=== PATIENT | female | born 1965 | race Caucasian/White ===

== ENCOUNTER → 2017-10-21 | Outpatient (CLI) | payer OTHER ==
[2017-10-21 11:04] LABS: Basophils % (A) 1 %; Eosinophils # (A) 0.1 k/uL (0-0.7); Eosinophils % (A) 2 %; HCT 45.1 % (34.0-46.0); HGB 14.9 gm/dL (11.4-16.0); Lymphocytes # (A) 1.7 k/uL (1.0-4.8); Lymphocytes % (A) 32 %; MCH 30.8 pg (25.0-35.0); MCHC 33.1 g/dL (31.0-37.0); MCV 93.3 fL (80.0-100.0); Mean Platelet Volume 6.9; Monocytes # (A) 0.4 k/uL (0-1.0); Monocytes % (A) 7 %; Neutrophils % (A) 57 %; Platelet Count 294 k/uL (150-450); RBC 4.83 m/uL (3.80-5.40); RDW 13.7 % (11.5-15.5); WBC 5.4 k/uL (3.8-10.6)
[2017-10-21 11:24] LABS: ALT 20 U/L (9-52); AST 17 U/L (14-36); Albumin 4.2 g/dL (3.5-5.0); Alkaline Phosphatase 33 U/L (38-126); Anion Gap 9 mmol/L; Blood Urea Nitrogen 16 mg/dL (7-17); Calcium 9.6 mg/dL (8.4-10.2); Carbon Dioxide 27 mmol/L (22-30); Chloride 105 mmol/L (98-107); Glucose 85 mg/dL (74-99); Potassium 4.6 mmol/L (3.5-5.1); Sodium 141 mmol/L (137-145); Total Bilirubin 0.4 mg/dL (0.2-1.3); Total Protein 6.8 g/dL (6.3-8.2)
[2017-10-21 16:58] LABS: Vitamin D 25 Hydroxy 19.2 ng/mL (30.0-100.0)
== END | disposition home or self-care (01) ==
LOC: LABWHC1 10:30
PROVIDERS: ATTEND Psychiatry & Neurology Neurology
DX: R51 Headache (principal); M79.1 Myalgia; G62.9 Polyneuropathy, unspecified
CPT/HCPCS: 36415; 80053; 82306; 82607; 83036; 85025

== ENCOUNTER 2020-04-01 22:10 | Emergency (ER) | payer MEDICARE, OTHER ==
[2020-04-01 22:29] VITALS: BP 129/85; PULSE 100; RESP 18; TEMP 98.4
[2020-04-01] MEDS ORDERED: ceFAZolin 1,000 MG VIAL (IM USE) IM STA (22:50)
[2020-04-01] MEDS: LIDOCAINE 1% INJ 10MG/ML (20 ML MDV) SQ ONE ×2 (23:06→23:08)
--- NOTE | 2020-04-01 23:08 | XR ---
EXAMINATION TYPE: XR finger RT DATE OF EXAM: 04/01/2020 COMPARISON: NONE HISTORY: Pain and swelling. Laceration. TECHNIQUE: 3 views. There is a transverse fracture across the base of the distal phalanx of the right index finger. There is no significant displacement. There is laceration deformity on the dorsum of the distal phalanx. IMPRESSION: Laceration deformity with fracture of the base of the distal phalanx index finger right h and.
[2020-04-01] MEDS ORDERED: BACITRACIN OINT 1 EACH PACKET TOPICAL ONE (23:49)
--- NOTE | 2020-04-01 23:49 | ED ---
Upper Extremity HPI - General Chief Complaint: Extremity Injury, Upper Stated Complaint: Finger Lac Time Seen by Provider: 04/01/20 22:32 Source: patient Mode of arrival: ambulatory Limitations: no limitations - History of Present Illness Initial Comments: 54-year-old female presented for left index finger laceration. Patient states she slammed her finger in the car door and had open it to get it out. Patient states she has a laceration. Patient states her tetanus has been up-to-date within the last 5 years. Patient sates she still able to range at the digit however is very swollen. Patient denies additional complaints. Remaining review of system negative denies any other areas of injury. States the pain is localized to the finger no other areas of the hand. - Related Data Previous Rx's Medication Instructions Recorded Cephalexin [Keflex] 500 mg PO Q6HR 7 Days #28 cap 04/01/20 Allergies Allergy/AdvReac Type Severity Reaction Status Date / Time No Known Allergies Allergy Verified 04/01/20 22:29 Review of Systems ROS Statement: Those systems with pertinent positive or pertinent negative responses have been documented in the HPI. ROS Other: All systems not noted in ROS Statement are negative. Past Medical History Past Medical History: No Reported History History of Any Multi-Drug Resistant Organisms: None Reported Past Surgical History: Hysterectomy Additional Past Surgical History / Comment(s): brain surgery, Past Psychological History: No Psychological Hx Reported Smoking Status: Current every day smoker Past Alcohol Use History: Occasional Past Drug Use History: None Reported General Exam - General Exam Comments Initial Comments: General: The patient is awake and alert, in no distress, and does not appear acutely ill. Eye: Pupils are equal, round and reactive to light, extra-ocular movements are intact. No nystagmus. There is normal conjunctiva bilaterally. No signs of icterus. Ears, nose, mouth and throat: There are moist mucous membranes and no oral lesions. Musculoskeletal: Swelling of the left index finger, laceration on the lateral aspect stretching towards the pad. Normal ROM, at mcp dip and pip joints of the finger. no limitations. Strength 5/5. Sensation intact. Radial pulses equal bilaterally 2+. Capillary refill less than 3 seconds. Neurological: A&O x 3. CN II-XII intact grossly, There are no obvious motor or sensory deficits. Coordination appears grossly intact. Speech is normal. Skin: Skin is warm and dry and no rashes or lesions are noted. Psychiatric: Cooperative, appropriate mood & affect, normal judgment. Limitations: no limitations Course Vital Signs 04/01/20 22:24 Temperature 98.4 F Pulse Rate 100 Respiratory 18 Rate Blood Pressure 129/85 O2 Sat by Pulse 99 Oximetry Procedures - Laceration Laceration #1 Consent Obtained: verbal consent Indication: laceration Site: other (finger left index) Size (cm): 2 Description: linear Depth: simple, single layer Anesthetic Used: lidocaine 1% Anesthesia Technique: nerve block Amount (mls): 1 Pre-repair: wound explored, irrigated extensively, deep structures intact Type of Sutures: nylon Size of Sutures: 5-0 Number of Sutures: 5 Technique: simple, interrupted Patient Tolerated Procedure: well, no complications Medical Decision Making - Medical Decision Making Open fracture suspected. cefazolin initiated. XR distal phalanx fracture, displaced. Patient irrigated with 1L of sterile water. Cleansed with iodine, repaired, attempted reduction. Bacitracin applied/bandage. Patient has no obvious sign of tendon injury. Patient will be discharged with orthopedic hand f/u and is to return to ER if develop sudden decrease in abilit to range at finger or increasing redness, swelling or any drainage. Patient verbalzied understanding and was discharged appearing well. Is to return fin 7-10 days for suture removal. Disposition Clinical Impression: Finger laceration, Open fracture, Phalanx, distal fracture of finger Disposition: HOME SELF-CARE Condition: Good Instructions (If sedation given, give patient instructions): Care For Your S titches (DC), Laceration (ED), Finger Fracture (ED) Additional Instructions: Please use medication as discussed. Please follow-up with orthopedic surgery in the next 1-2 days please. Please return to emergency room if the symptoms increase or worsen or for any other concerns. Prescriptions: Cephalexin [Keflex] 500 mg PO Q6HR 7 Days #28 cap Is patient prescribed a controlled substance at d/c from ED?: No Referrals: Krissy Greene DO [Primary Care Provider] - 1-2 days Sergio Rae DO [Medical Doctor] - 1-2 days Time of Disposition: 23:49
--- NOTE | 2020-04-06 09:07 | CDI ---
Dear Rocio Juan Please do addendum for if fracture reduction done ?? mention in MDM attempted reduction. Thank you, Mary Astorga Sales Representative Sales Manager If you have any questions, please contact [facility] at [phone] BETTY
== END 2020-04-02 00:23 | disposition home or self-care (01) ==
LOC: EC 22:10
DX: S62.631B Displaced fracture of distal phalanx of left index finger, initial encounter for open fracture (principal); F17.200 Nicotine dependence, unspecified, uncomplicated; W23.0XXA Caught, crushed, jammed, or pinched between moving objects, initial encounter; Y93.89 Activity, other specified; Y92.009 Unspecified place in unspecified non-institutional (private) residence as the place of occurrence of the external cause
CPT/HCPCS: 99283; 96372; 12001; 73140; J0690; J2001

== ENCOUNTER 2021-08-17 08:27 | Day surgery (SDC) | payer BC, MEDICARE ==
[2021-08-12 15:26] VITALS: BMI 22.9
[~2021-08-17 08:27] MED LIST: LACTATED RINGERS 1,000 ML IV SCH; LIDOCAINE 1% (10MG/ML) FOR IV START INTRADERMA PRN
[2021-08-17 08:52] VITALS: TEMP 96.9
[2021-08-17] MEDS ORDERED: PROPOFOL 10 MG/ML 20 ML VIAL IV ONE (09:20)
--- NOTE | 2021-08-17 09:50 | P.PCN ---
Date of Procedure: 08/17/21 Procedure(s) Performed: BRIEF HISTORY: Patient is a 55-year-old pleasant white female scheduled for an elective colonoscopy as a part of change in bowel habits for the last 1 year duration. PROCEDURE PERFORMED: Colonoscopy with snare polypectomy. PREOPERATIVE DIAGNOSIS: Change in bowel. IV sedation per Anesthesia. PROCEDURE: After informed consent was obtained, the patient, was brought into the endoscopy unit. IV sedation was administered by Anesthesia under continuous monitoring. Digital rectal examination was normal. Initially the Olympus CF-160 flexible video colonoscope was then inserted in the rectum, gradually advanced into the cecum without any difficulty. Careful examination was performed as the scope was gradually being withdrawn. Ileocecal valve and the appendiceal orifice were visualized and appeared normal. Prep was good.. Mucosa of the cecum, ascending colon, appeared normal. The transverse colon there was a 5 mm and 7 mm polyp removed by snare polypectomy. Rest of the transverse colon, descending colon, sigmoid colon, and rectum appeared normal. Retroflexion was performed in the rectum and small internal hemorrhoids were seen. The patient tolerated the procedure well. IMPRESSION: 5 mm and 7 mm transverse colon polyp status post polypectomy Rest of the colon appeared normal small internal hemorrhoids RECOMMENDATIONS: Findings of this examination were discussed with the patient as well as her family. She was advised to follow with the biopsy results. If biopsies adenoma she can have a repeat colonoscopy in 5 years. In the meantime suggested that she increase the MiraLAX 1 scoop twice daily and continue with a high-fiber diet..
[2021-08-17 10:34] VITALS: BP 110/65; PULSE 56; RESP 14
== END 2021-08-17 10:22 | disposition home or self-care (01) ==
LOC: ORWHC2ENDO 08:27
PROVIDERS: ATTEND Internal Medicine Gastroenterology
DX: K59.9 Functional intestinal disorder, unspecified (principal); D12.3 Benign neoplasm of transverse colon; K64.8 Other hemorrhoids; F17.200 Nicotine dependence, unspecified, uncomplicated; K59.00 Constipation, unspecified; Z97.2 Presence of dental prosthetic device (complete) (partial); Z79.1 Long term (current) use of non-steroidal anti-inflammatories (NSAID); Z79.82 Long term (current) use of aspirin; Z88.8 Allergy status to other drugs, medicaments and biological substances
CPT/HCPCS: 88305; 45385; J2704

== ENCOUNTER → 2021-12-08 | Outpatient (CLI) | payer BC, MEDICARE | END | disposition home or self-care (01) | LOC: RADUSWWP 07:04 | PROVIDERS: ATTEND Family Medicine | DX: M79.661 Pain in right lower leg (principal) | CPT/HCPCS: 93922 ==

== ENCOUNTER 2022-08-15 10:16 | Emergency (ER) | payer BC, MEDICARE ==
[2022-08-15 10:39] VITALS: RESP 18; TEMP 97.9
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
--- NOTE | 2022-08-15 11:13 | XR ---
EXAMINATION TYPE: XR shoulder complete LT DATE OF EXAM: 08/15/2022 COMPARISON: NONE HISTORY: Pain TECHNIQUE: Three views are submitted. FINDINGS: The osseous structures are intact. There is no acute fracture or dislocation. The AC joint is maint ained. Calcifications along the humeral head are incidentally noted. IMPRESSION: 1. No acute process. Findings suggestive of calcific tendinosis of the rotator cuff.
[2022-08-15] MEDS ORDERED: MORPHINE SULFATE 2 MG/ML SYRINGE IM STA (11:49)
[2022-08-15] MEDS ORDERED: predniSONE 50 MG TAB PO STA (11:49)
[2022-08-15 13:20] VITALS: BP 115/73; PULSE 77
== END 2022-08-15 13:22 | disposition home or self-care (01) ==
LOC: EC 10:16
DX: M75.32 Calcific tendinitis of left shoulder (principal); Z88.8 Allergy status to other drugs, medicaments and biological substances; Z79.82 Long term (current) use of aspirin; F12.90 Cannabis use, unspecified, uncomplicated; F17.210 Nicotine dependence, cigarettes, uncomplicated
CPT/HCPCS: 73030; 99283; 96372; J2270; J7512

== ENCOUNTER 2022-08-22 04:23 | Emergency (ER) | payer BC, MEDICARE ==
[2022-08-22 04:32] VITALS: BP 135/83; TEMP 97.4
[2022-08-22] MEDS ORDERED: IBUPROFEN 600 MG STARTER PACK 4 TAB BTL PO STA (05:08)
[2022-08-22] MEDS ORDERED: KETOROLAC 15 MG/ML 1 ML VIAL IM STA (05:08)
[2022-08-22] MEDS ORDERED: Acetaminophen-Codeine 300-30mg TAB PO STA (05:08)
[2022-08-22] MEDS ORDERED: ACET/COD 300 MG/30 MG STARTER PACK 6 TAB BTL PO STA (05:08)
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
[2022-08-22 05:38] VITALS: PULSE 70; RESP 18
== END 2022-08-22 05:30 | disposition home or self-care (01) ==
LOC: EC 04:23
DX: M75.32 Calcific tendinitis of left shoulder (principal); F17.200 Nicotine dependence, unspecified, uncomplicated; F12.90 Cannabis use, unspecified, uncomplicated; Z88.8 Allergy status to other drugs, medicaments and biological substances
CPT/HCPCS: 99284; 96372; J1885

== ENCOUNTER → 2023-07-03 | Outpatient (CLI) | payer BC, MEDICARE ==
--- NOTE | 2023-07-07 12:22 | MM ---
Reason for Exam: Screening (asymptomatic). Last mammogram was performed 5 year(s) and 9 month(s) ago. Patient History: Menarche at age 17. First Full-Term at age 28. Postmenopausal. Patient has history of breast feeding. Maternal grandmother had breast cancer. Risk Values: Maria L 5 year model risk: 1.2%. NCI Lifetime model risk: 8.3%. Prior Study Comparison: 04/02/2015 Bilateral Screening Mammogram, [facility]. 09/22/2017 Bilateral Screening Mammogram, [facility]. Tissue Density: The breast tissue is extremely dense which could obscure a lesion on mammography. Findings: Analyzed By CAD. There is no suspicious group of microcalcifications or new suspicious mass. Benign-appearing calcifications bilaterally. Overall Assessment: Benign, BI-RAD 2 Management: Screening Mammogram of both breasts in [address] [facility] will attempt to contact patient to return for supplemental views and ultrasound if indicated. Patient should continue monthly self-breast exams. A clinical breast exam by your physician is recommended on an annual basis. This exam should not preclude additional follow-up of suspicious palpable abnormalities. Note on Maria L scores and lifetime risk: 1. A Maria L score greater than 3% is considered moderate risk. If this is the case, consider specialist referral to assess eligibility for a risk reducing agent. 2. If overall lifetime risk for the development of breast cancer is 20% or higher, the patient may qualify for future screening with alternating mammogram and breast MRI. Electronically signed and approved by: Dutch Bravo DO
== END | disposition home or self-care (01) ==
LOC: RADMAMWWP 15:12
PROVIDERS: ATTEND Family Medicine
DX: Z12.31 Encounter for screening mammogram for malignant neoplasm of breast (principal); Z80.3 Family history of malignant neoplasm of breast; Z78.0 Asymptomatic menopausal state
CPT/HCPCS: 77063; 77067

== ENCOUNTER 2023-07-05 07:19 | Emergency (ER) | payer BC, MEDICARE ==
[2023-07-05 07:35] VITALS: RESP 18; TEMP 97.6
[2023-07-05 08:00] LABS: Basophils % (A) 1 %; Eosinophils # (A) 0.1 k/uL (0-0.7); Eosinophils % (A) 1 %; HCT 47.3 % (34.0-46.0); HGB 15.9 gm/dL (11.4-16.0); Lymphocytes # (A) 1.3 k/uL (1.0-4.8); Lymphocytes % (A) 21 %; MCH 31.3 pg (25.0-35.0); MCHC 33.6 g/dL (31.0-37.0); MCV 93.3 fL (80.0-100.0); Mean Platelet Volume 7.2; Monocytes # (A) 0.3 k/uL (0-1.0); Monocytes % (A) 6 %; Neutrophils # (A) 4.2 k/uL (1.3-7.7); Neutrophils % (A) 69 %; Platelet Count 345 k/uL (150-450); RBC 5.07 m/uL (3.80-5.40); RDW 13.9 % (11.5-15.5); WBC 6.1 k/uL (3.8-10.6)
[2023-07-05 08:06] VITALS: PULSE 98
[2023-07-05 08:12] LABS: ALT 15 U/L (4-34); AST 20 U/L (14-36); African American GFR (CKD) >90 (>60 ml/min/1.73 sqM); Albumin 4.5 g/dL (3.5-5.0); Alkaline Phosphatase 37 U/L (38-126); Anion Gap 12 mmol/L; Blood Urea Nitrogen 13 mg/dL (7-17); Calcium 9.5 mg/dL (8.4-10.2); Carbon Dioxide 24 mmol/L (22-30); Chloride 100 mmol/L (98-107); Glucose 143 mg/dL (74-99); Lipase 64 U/L (23-300); Non-African American GFR(CKD) 85 (>60 ml/min/1.73 sqM); Potassium 3.7 mmol/L (3.5-5.1); Sodium 136 mmol/L (137-145); Total Bilirubin 0.5 mg/dL (0.2-1.3); Total Protein 7.1 g/dL (6.3-8.2)
--- NOTE | 2023-07-05 08:12 | XR ---
EXAMINATION TYPE: XR KUB DATE OF EXAM: 07/05/2023 8:00 AM CLINICAL INDICATION:Female, 57 years old with history of abdominal pain; [facility] COMPARISON: None. TECHNIQUE: One radiographic view of the abdomen was obtained. FINDINGS: Large stool burden throughout the colon. The bowel gas pattern is nonspecific without dilat ed loops of small or large bowel. There is no evidence for organomegaly or pneumoperitoneum. The oss eous structures are intact. No abnormal calcifications are present. Fecal material and gas are demon strated throughout the colon and rectum. IMPRESSION: Large stool burden throughout the colon predominantly in the left side. Otherwise no acute process.
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
[2023-07-05 08:54] LABS: Appearance,Urine Clear (Clear); Bilirubin,Urine Negative (Negative); Blood,Urine Negative (Negative); Color,Urine Light Yellow; Glucose,Urine (UA) Negative (Negative); Ketones,Urine Negative (Negative); Leukocyte Esterase,Urine Negative (Negative); Nitrite,Urine Negative (Negative); PH, Urine 6.5 (5.0-8.0); Protein,Urine Negative (Negative); Specific Gravity,Urine 1.009 (1.001-1.035); Urobilinogen,Urine <2.0 mg/dL (<2.0)
[2023-07-05] MEDS ORDERED: LACTULOSE 20 GM/30 ML CUP PO ONE (09:15)
[2023-07-05 09:37] VITALS: BP 112/84
== END 2023-07-05 09:29 | disposition home or self-care (01) ==
LOC: EC 07:19
DX: K59.00 Constipation, unspecified (principal); F17.200 Nicotine dependence, unspecified, uncomplicated; F12.90 Cannabis use, unspecified, uncomplicated; Z88.8 Allergy status to other drugs, medicaments and biological substances
CPT/HCPCS: 36415; 74018; 80053; 81003; 83605; 83690; 85025; 99284

== ENCOUNTER → 2024-05-07 | Outpatient (CLI) | payer BC ==
--- NOTE | 2024-05-07 15:03 | CT ---
EXAMINATION TYPE: CT abdomen pelvis w con DATE OF EXAM: 05/07/2024 COMPARISON: None INDICATION: abd pain/constipation DLP: 342.4 mGycm, Automated exposure control for dose reduction was used. CONTRAST: 100 mL of Isovue 300. Study performed with Oral Contrast TECHNIQUE: Axial images were obtained from above the diaphragm to the pubic rami in the axial plane a t 5 mm thick sections. Reconstructed images are reviewed on the computer in the coronal plane. FINDINGS: Limited CT sections are obtained the lung bases. The lung bases are clear. CT ABDOMEN: Liver: Normal Spleen: Normal Pancreas: Normal Adrenal glands: The adrenal glands are normal. Gallbladder: Normal Kidneys: No masses are evident. No hydronephrosis is present. No cysts are present. Delayed images were obtained through the kidneys, which remain unremarkable. Aorta: Vascular calcification is within the aorta. Inferior vena cava: Normal. CT PELVIS: Abundant fecal debris throughout the colon. Small bowel loops distended with oral contrast. Unremarka ble. There are loops of bowel which are incompletely distended or lack oral contrast limiting their e valuation. Appendix: Normal as visualized. Urinary bladder: Normal. Genitourinary structures: Uterus is unremarkable. There are cysts of the bilateral ovaries measuring 2.3 cm on the right 1.9 cm on the left. Osseous structures: No suspicious lytic or sclerotic lesions. Endplate sclerosis is present L5-S1 sma ll bone island may be in the right iliac wing IMPRESSION: 1. Moderate fecal retention. No suspicious changes to suggest obstruction [facility], Workstation: [id number], 05/07/2024 3:01 PM
== END | disposition home or self-care (01) ==
LOC: RADCTMAIN 11:22
PROVIDERS: ATTEND Family Medicine
DX: R10.0 Acute abdomen
CPT/HCPCS: 74177

== ENCOUNTER → 2024-10-16 | Outpatient (CLI) | payer BC ==
--- NOTE | 2024-10-16 09:25 | NM ---
EXAMINATION TYPE: NM hepatobiliary w EF DATE OF EXAM: 10/16/2024 8:54 AM COMPARISON: CT abdomen pelvis most recent from 05/07/2024 CLINICAL INDICATION:Female, 59 years old with history of R10.13 epigastric pain; TECHNIQUE: The patient was given 4.7 mCi of Technetium 99m-Mebrofenin as a radiotracer and multiple scintigraphic images were obtained of the abdomen. Gallbladder function was also assessed after the a dministration of ensure drink and additional scintigraphic images were obtained of the abdomen. A reg ion of interest was drawn over the gallbladder and a timing activity curve was generated. The gallbla dder ejection fraction was calculated. FINDINGS: Normal uptake of radiotracer was identified within the liver with excretion into the hepatic and comm on biliary ducts within 4 min. There was normal progressive washout of the liver over the course of t he study. Radiotracer uptake within the gallbladder at 6 minutes as well as small bowel. Maximum calculated gallbladder ejection fraction is: 85% at 30 minutes (Normal gallbladder ejection fraction is > 35%) IMPRESSION: 1. Normal hepatobiliary scan. 2. Normal ejection fraction. [facility], , 10/16/2024 9:22 AM
== END | disposition home or self-care (01) ==
LOC: RADNMMAIN 06:37
PROVIDERS: ATTEND Family Medicine
DX: O21.0 Mild hyperemesis gravidarum (principal); R10.13 Epigastric pain
CPT/HCPCS: 78226; A9537

== ENCOUNTER → 2025-02-20 | Day surgery (SDC) | payer BC ==
[2024-11-20 09:13] VITALS: BMI 18.3
[~2025-02-20] MED LIST changes: +GLYCOPYRROLATE 0.2 MG/ML 2 ML VIAL ONE; -LIDOCAINE 1% (10MG/ML) FOR IV START INTRADERMA PRN; +LIDOCAINE 1% INJ 10MG/ML (20 ML MDV) ONE; +PROPOFOL 10 MG/ML 20 ML VIAL IV ONE
[2025-02-20] MEDS: IV FLUID CONTINUATION 1,000 ML IV ONE ×2 (11:10→12:06)
[2025-02-20 11:23] VITALS: RESP 16; TEMP 97.9
[2025-02-20] MEDS: LACTATED RINGERS 1,000 ML IV SCH (11:39)
[2025-02-20 12:50] VITALS: BP 112/67
--- NOTE | 2025-02-20 12:53 | P.PCN ---
Date of Procedure: 02/20/25 Preoperative Diagnosis: Epigastric pain Abnormal weight loss Postoperative Diagnosis: Gastritis Hiatal hernia Normal colon with internal hemorrhoids Procedure(s) Performed: EGD with biopsy Colonoscopy Anesthesia: MAC Surgeon: Silvia Millan Pathology: other (Biopsy of GE junction, duodenum, antrum) Condition: stable Disposition: same day Indications for Procedure: 59-year-old female with recent epigastric pain and occasional dysphagia. She states that she has also had abnormal weight loss. Plan is for upper and lower endoscopy for further evaluation. Risks, benefits and alternatives were provided to the patient. All questions answered prior to attending the endoscopy suite. Operative Findings: Gastritis Small hiatal hernia Overall normal-appearing colon with internal hemorrhoid Description of Procedure: The patient was brought into the endoscopy suite and placed in left lateral decubitus position. Adequate sedation was achieved using conscious sedation. A bite-block was placed and an endoscope was placed in the oropharynx and advanced under endoscopic visualization. The endoscope was advanced through the esophagus into the stomach, through the gastric antrum and in through the pylorus. The third portion of duodenum was visualized. The endoscope was then slowly withdrawn. The first portion of duodenum was noted to have inflammatory changes. Biopsies were taken. The antrum was noted to have inflammatory changes. Biopsies were taken. The gastric body distended normally and the gastric folds appeared normal and flattened with insufflation. A retroflexed view of the fundus and GE junction revealed mild hiatal hernia. GE junction appeared normal and biopsies were taken. The esophagus appeared endoscopically normal. Excess air was removed and the scope was withdrawn. Digital rectal exam was performed and mild internal hemorrhoids were palpated. An endoscope was then placed in the rectum and advanced to the cecum as identified by landmarks including the appendiceal orifice and the ileocecal valve. The prep was good. The colonoscope was then slowly withdrawn, examining for any mucosal abnormalities. The cecum, ascending, transverse, descending and sigmoid colon were visualized adequately. There were no large neoplastic lesions noted throughout the colon. No obvious polyps noted throughout the colon. No significant diverticulosis was noted. Hemostasis was maintained. Retroflexion was performed in the rectum and internal hemorrhoids. Excess air was removed, the colonoscope withdrawn and the procedure terminated. The patient was then transferred to the recovery unit in stable condition. Repeat colonoscopy should be performed in 5 years.
[2025-02-20 13:02] VITALS: PULSE 78
== END | disposition home or self-care (01) ==
LOC: ORWHC2ENDO 09:58
PROVIDERS: ATTEND Surgery
DX: K20.90 Esophagitis, unspecified without bleeding (principal); K29.70 Gastritis, unspecified, without bleeding; K44.9 Diaphragmatic hernia without obstruction or gangrene; K64.8 Other hemorrhoids; F17.200 Nicotine dependence, unspecified, uncomplicated; Z88.8 Allergy status to other drugs, medicaments and biological substances
CPT/HCPCS: 88305; 45378; 43239; J2003; J2704; J1596